=== PATIENT | female | born 1965 | race Caucasian/White ===

== ENCOUNTER 2018-04-05 12:37 | Emergency (ER) | payer BC ==
--- NOTE | 2018-04-05 13:46 | RAD ---
INDICATION: Neck pain and stiffness. COMPARISON: There are no prior studies available for comparison. TECHNIQUE: 5 views of the cervical spine were obtained including lateral, oblique, AP, open-mouth odontoid views. FINDINGS: C1-C7 are visualized. The vertebra are in normal alignment. No prevertebral soft tissue swelling or fracture is seen. There is moderate to severe disc space narrowing and moderate uncinate process spurring present at the C5-C6 and C6-C7 levels. There is mild to moderate bilateral neural foraminal narrowing at those levels. IMPRESSION: MODERATE TO SEVERE DEGENERATIVE DISC DISEASE AT THE C5-C6 AND C6-C7 LEVELS.
[2018-04-05 14:19] VITALS: BP 140/102
--- NOTE | 2018-04-06 17:25 | UC ---
Neck Pain HPI - HPI Summary HPI Summary: throbbing posterior headache, pain and tightness in neck --[facility] at [facility]/o rx 5 mg flexeril which helps a little bit--patient knows of no injury or different exercises--does report exercising alot and has recently been taken care of her grandchildren---no numbness of tingling in arms - History of Current Complaint Chief Complaint: UCHeadache Stated Complaint: HEADACHE Time Seen by Provider: 04/05/18 12:58 Hx Obtained From: Patient ?: No Onset/Duration Of Injury/Symptoms: Days Mechanism Of Injury: No Known Trauma Timing: Constant Onset/Duration: Gradual Onset, Lasting Days Pain Intensity: 6 Pain Scale Used: 0-10 Numeric Location: Discrete At: - back of neck Character: Spasmotic, Throbbing Aggravating Factors: Nothing Alleviating Factors: Nothing Associated Signs & Symptoms: Positive: Negative - Allergies/Home Medications Allergies/Adverse Reactions: Allergies Allergy/AdvReac Type Severity Reaction Status Date / Time morphine Allergy Hives Verified 04/05/18 12:58 Sulfa (Sulfonamide Allergy Hives Verified 04/05/18 12:58 Antibiotics) sulfamethoxazole Allergy Hives Verified 04/05/18 12:58 [From Bactrim] trimethoprim [From Bactrim] Allergy Hives Verified 04/05/18 12:58 Home Medications: Home Medications Estradiol 1 mg PO SEE INSTRUCTIONS 04/05/18 [History Confirmed 04/05/18] Levothyroxine TAB* [Synthroid TAB*] 125 mcg PO DAILY 04/05/18 [History Confirmed 04/05/18] Omeprazole 20 mg PO DAILY 04/05/18 [History Confirmed 04/05/18] PMH/Surg Hx/FS Hx/Imm Hx Previously Healthy: No Endocrine History: Hypothyroidism GI/ History: Gastroesophageal Reflux - Surgical History Surgical History: Yes Surgery Procedure, Year, and Place: x2, finger tendon repair - Social History Occupation: Employed Full-time Lives: With Family Alcohol Use: Occasionally Substance Use Type: None Smoking Status (MU): Never Smoked Tobacco Review Of Systems Constitutional: Positive: Negative Skin: Positive: Negative Eyes: Positive: Negative ENT: Positive: Negative Respiratory: Positive: Negative Cardiovascular: Positive: Negative Gastrointestinal: Positive: Negative Genitourinary: Positive: Negative Musculoskeletal: Positive: Arthralgia - back of neck and posterior headache Neurological: Positive: Headache Psychological: Positive: Negative All Other Systems Reviewed And Are Negative: Yes Physical Exam Triage Information Reviewed: Yes Appearance: Well-Appearing, No Pain Distress, Well-Nourished Vital Signs: Initial Vital Signs Temp 98.7 F 04/05/18 12:48 Pulse 76 04/05/18 12:48 Resp 18 04/05/18 12:48 BP 154/95 04/05/18 12:48 Pulse Ox 100 04/05/18 12:48 Vital Signs Reviewed: Yes Eye Exam: Normal Eyes: Positive: Conjunctiva Clear ENT Exam: Normal ENT: Positive: Normal ENT inspection, Hearing grossly normal, Pharynx normal, TMs normal. Negative: Nasal congestion, Tonsillar swelling, Trismus, Muffled voice, Hoarse voice, Dental tenderness, Sinus tenderness, Uvula midline Dental Exam: Normal Neck exam: Normal Neck: Positive: Supple, Nontender, No Lymphadenopathy Respiratory Exam: Normal Respiratory: Positive: Chest non-tender, Lungs clear, Normal breath sounds, No respiratory distress, No accessory muscle use Cardiovascular Exam: Normal Cardiovascular: Positive: RRR, No Murmur, Pulses Normal, Brisk Capillary Refill Abdominal Exam: Normal Musculoskeletal Exam: Normal Musculoskeletal: Positive: Strength Intact, ROM Intact, No Edema Neurological Exam: Normal Neurological: Positive: Alert, Muscle Tone Normal Psychological Exam: Normal Skin Exam: Normal Diagnostics - Radiology No standard instances Xray Interpretation: Positive (See Comments) - Patient Name: KRISH ROBBINS Medical Record#: [id number] Ordering Physician: Elisa Hyman FARM DEMONSTRATOR Acct.#: [id number] : 1965 Age: 52 Sex: F Location: [facility] Exam Date: 04/05/18 1319 ADM Status: REG ER Order Information: SP CERVICAL 4+VWS Accession Number: [id number] CPT: 07311 INDICATION: Neck pain and stiffness. COMPARISON: There are no prior studies available for comparison. TECHNIQUE: 5 views of the cervical spine were obtained including lateral, oblique, AP, open-mouth odontoid views. FINDINGS: C1-C7 are visualized. The vertebra are in normal alignment. No prevertebral soft tissue swelling or fracture is seen. There is moderate to severe disc space narrowing and moderate uncinate process spurring present at the C5-C6 and C6-C7 levels. There is mild to moderate bilateral neural foraminal narrowing at those levels. IMPRESSION: MODERATE TO SEVERE DEGENERATIVE DISC DISEASE AT THE C5-C6 AND C6-C7 LEVELS. <Electronically signed by Bc Worthington MD in [place]> 04/05/18 1342 Dictated By: Bc Worthington MD Dictated Date/ Time: 04/05/18 1342 Transcribed Date/Time: 04/05/18 1340 Copy to: CC:Elisa Hyman FARM DEMONSTRATOR; Emily Hollis FARM DEMONSTRATOR; Lux Wheat MD Imaging - [facility] Imaging - [facility] Imaging [facility] [address] [place] [address] ph [phone] ph [phone]) ph ([phone]) 1 of Radiology Interpretation Completed By: ED Physician, Radiologist Neck Pain Course/Dx - Course Course Of Treatment: flexeril, nsaids, lidoderm patch follow with pcp - Differential Dx/Diagnosis Provider Diagnoses: moderate-sever degenerative disease cervical spine Discharge - Sign-Out/Discharge Documenting (check all that apply): Discharge/Admit/Transfer - Discharge Plan Condition: Stable Disposition: HOME Prescriptions: Cyclobenzaprine TAB* [Flexeril 10 MG TAB*] 10 mg PO TID PRN #15 tab PRN Reason: muscle tightness in neck Lidocaine PATCH 5%* [Lidoderm 5% Patch*] 1 patch TRANSDERM DAILY #15 patch Naproxen [Naprosyn 500 mg tab] 500 mg PO BID PRN #30 tablet PRN Reason: pain Patient Education Materials: Hypertension (ED), Degenerative Disc Disease (ED) , Acute Neck Pain (ED) Referrals: Emily Hollis NP [Primary Care Provider] - 1 Week - Billing Disposition and Condition Condition: STABLE Disposition: Home
== END 2018-04-05 14:14 | disposition home or self-care (01) ==
LOC: UCEAST 12:37
DX: M50.30 Other cervical disc degeneration, unspecified cervical region (principal); R51 Headache; E03.9 Hypothyroidism, unspecified; K21.9 Gastro-esophageal reflux disease without esophagitis; Z88.5 Allergy status to narcotic agent; Z88.2 Allergy status to sulfonamides; Z79.899 Other long term (current) drug therapy
CPT/HCPCS: 72050; 99202; G0463